=== PATIENT | female | born 1985 | race African-American/Black ===

== ENCOUNTER 2018-12-01 16:12 | Emergency (ER) | payer OTHER ==
[~2018-12-01] VITALS: Ht 165.1 cm; Wt 68.0 kg
--- NOTE | 2018-12-01 16:12 | NUR ---
brought in by [facility] with complaints patient was trying to cut her wrist today . patient came with lapd escort in restraints. on arrival patient is combative at times but confused. patient is homeless unable to get information
--- NOTE | 2018-12-01 16:30 | NUR ---
nursing postal supervisor notified for a sitter to be at bedside
[2018-12-01 16:43] VITALS: BP 122/80
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
--- NOTE | 2018-12-01 16:45 | NUR ---
sitter at bedside (nazario hernandez)
--- NOTE | 2018-12-01 16:48 | NUR ---
ED Nurse Note: BELONGINGS PLACED ON PSYCH LOCKER #1.
--- NOTE | 2018-12-01 16:59 | NUR ---
ED Nurse Note: COLLECTED BLOOD/URINE THEN SENT.
--- NOTE | 2018-12-01 17:06 | NUR ---
ED Nurse Note: TYRA SITTER AT THE BED SIDE.
[2018-12-01 17:11] LABS: APPEARANCE,URINE SLIGHTLY CLOUDY; BILIRUBIN, URINE 1+ (NEGATIVE); EOSINOPHILS % (AUTO) 0.8 % (0.0-3.0); GLUCOSE, URINE (UA) NEGATIVE (NEGATIVE); HEMATOCRIT 40.3 % (37.0-47.0); KETONES,URINE 2+ (NEGATIVE); LEUKOCYTE ESTERASE ,URINE 1+ (NEGATIVE); LYMPHOCYTES % (AUTO) 25.8 % (20.0-45.0); MEAN CORPUSCULAR VOLUME 82 FL (80-99); NEUTROPHILS % (AUTO) 66.4 % (45.0-75.0); NITRITE,URINE NEGATIVE (NEGATIVE); PH,URINE 6 (4.5-8.0); PLATELET COUNT 209 K/UL (150-450); PROTEIN,URINE 2+ (NEGATIVE); RED BLOOD COUNT 4.93 M/UL (4.20-5.40); RED CELL DISTRIBUTION WIDTH 12.9 % (11.6-14.8); UROBILINOGEN,URINE 8 MG/DL (0.0-1.0); WHITE BLOOD COUNT 7.2 K/UL (4.8-10.8)
[2018-12-01 17:13] LABS: COLOR,URINE YELLOW
[2018-12-01 17:35] LABS: ALANINE AMINOTRANSFERASE 27 U/L (12-78); ALBUMIN 4.1 G/DL (3.4-5.0); ALBUMIN/GLOBULIN RATIO 1.1 (1.0-2.7); ALKALINE PHOSPHATASE 62 U/L (46-116); ANION GAP 12 mmol/L (5-15); ASPARTATE AMINO TRANSFERASE 56 U/L (15-37); BILIRUBIN,TOTAL 0.5 MG/DL (0.2-1.0); BLOOD UREA NITROGEN 13 mg/dL (7-18); CALCIUM 9.6 MG/DL (8.5-10.1); CARBON DIOXIDE 22 MMOL/L (21-32); CHLORIDE 104 MMOL/L (98-107); CREATININE 1.3 MG/DL (0.55-1.30); SODIUM 138 MMOL/L (136-145)
[2018-12-01 17:36] LABS: POTASSIUM 2.6 MMOL/L (3.5-5.1)
[2018-12-01] MEDS ORDERED: Haloperidol 5mg/ml Inj IM ONE (17:45)
--- NOTE | 2018-12-01 18:10 | NUR ---
Note mike in EDM - 12/01/18 at 1823 by HOLLIS ED Nurse Note: POTASSIUM 20 MEQ PULLED OUT FROM PYXIS AND ALREADY UNWRAPPED BY ELLA. PT REFUSED TO TAKE ORAL POTASSIUM. POTASIUM DRIP STARTED. ELLA BRIONES WITNESS.
--- NOTE | 2018-12-01 18:10 | NUR ---
ED Nurse Note: POTASSIUM 40 MEQ PULLED OUT FROM PYXIS AND ALREADY UNWRAPPED BY RN. PT REFUSED TO TAKE ORAL POTASSIUM. POTASIUM DRIP STARTED. RN ANSELMO WITNESS.
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
--- NOTE | 2018-12-01 18:40 | NUR ---
ED Nurse Note: POTASSIUM DRIP STOPPED/DISCONTINUED D/T BURNING PAIN ON IV SITE. SPIKED POTASSIUM BAG WASTED ON MEDICATION ROOM. DR NOLAN NOTIFIED AND WAITING FOR NEW ORDERS.
--- NOTE | 2018-12-01 19:10 | NUR ---
ED Nurse Note: Patient awake, sitter at bedside.
--- NOTE | 2018-12-01 19:19 | NUR ---
HAND-OFF: Report given to TIO JARAMILLO.
[2018-12-01 19:43] VITALS: BP 124/87
--- NOTE | 2018-12-01 19:44 | NUR ---
ED Nurse Note: Patient currently sleeping, vital signs stable and documented. Sitter at bedside.
--- NOTE | 2018-12-01 20:44 | NUR ---
ED Nurse Note: Patient is sleeping, vital signs stable.
--- NOTE | 2018-12-01 21:21 | NUR ---
ED Nurse Note: Patient currently resting with sitter at bediside. Second K-rider hung, rate slow patient is sensitive to rapid infusion.
[2018-12-01 22:37] VITALS: BP 128/86
--- NOTE | 2018-12-01 22:38 | NUR ---
ED Nurse Note: Patient resting comfortably, no s/s of acute distress, vital signs updated.
--- NOTE | 2018-12-01 23:38 | NUR ---
ED Nurse Note: Patient is sleeping, is arousable by pain. vital signs stable.
[2018-12-02] VITALS (8 sets, daily range): BP systolic 110–137; BP diastolic 68–93
--- NOTE | 2018-12-02 00:58 | NUR ---
ED Nurse Note: Patient is sleeping, sitter at bedside. vital signs stable.
--- NOTE | 2018-12-02 02:00 | NUR ---
ED Nurse Note: Patient is awake unable to give her name, unresponsive to questions.
--- NOTE | 2018-12-02 03:00 | NUR ---
ED Nurse Note: Patient still sleeping, sitter at bedside.
--- NOTE | 2018-12-02 04:01 | NUR ---
ED Nurse Note: Patient is sleeping, vital signs stable.
--- NOTE | 2018-12-02 07:04 | NUR ---
HAND-OFF: Report given to Sandrita JARAMILLO.
--- NOTE | 2018-12-02 07:48 | NUR ---
ED Nurse Note: BREAKFAST PROVIDED TO PT. NO DISTRESS AT THIS TIME. STILL WAITING FOR PLACEMENT. PRIMARY RN VINICIUS DOWNS.
--- NOTE | 2018-12-02 09:36 | NUR ---
ED Nurse Note: PT FINISHED 1/3 OF HER BREAKFAST THEN WENT BACK TO SLEEP.
--- NOTE | 2018-12-02 11:00 | NUR ---
ED Nurse Note: PRIMARY RN THE SITTER.
--- NOTE | 2018-12-02 11:25 | NUR ---
ED Nurse Note: Pt keeps wandering in the corridor and refsuing to follow commands. Pt is uncooperative and agitated. Dr Leblanc notified.
[2018-12-02] MEDS ORDERED: LORazepam Inj 2mg/ml 1ml ONE (11:26)
[2018-12-02] MEDS ORDERED: DiphenhydrAMINE 50mg/ml Inj ONE (11:27)
[2018-12-02] MEDS ORDERED: DiphenhydrAMINE 50mg/ml Inj IV ONE (11:30)
[2018-12-02] MEDS ORDERED: LORazepam Inj 2mg/ml 1ml IV ONE (11:30)
--- NOTE | 2018-12-02 13:00 | NUR ---
ED Nurse Note: LALA SITTER AT THE BED SIDE. PT RESTING WITH NO DISTRESS.
--- NOTE | 2018-12-02 14:54 | NUR ---
spoke to lluvia officer crow who states once the patient comes to er that is the responsibility of the hospital to find the name of the patient and it will be hippa violation to come back and do anything by lluvia. i told the officer that they need to help me to find her name but he said it is not his responsbility the hospital is responsible for this and social media content specialist should be the one to take care of the issue ( per their smart team)
--- NOTE | 2018-12-02 15:55 | Cardiology Report ---
APPROVED REPORT EKG Measurement Heart [id number] Normal sinus rhythm Biatrial enlargement Nonspecific T wave abnormality Prolonged QT Abnormal ECG
--- NOTE | 2018-12-02 16:00 | NUR ---
ED Nurse Note: LAAL SITTER AT THE BED SIDE. PT STILL NOT STATING HER NAME.
--- NOTE | 2018-12-02 17:43 | NUR ---
ED Nurse Note: DINNER AND DRINKS PROVIDED TO PT. VINICIUS MONTIEL RN THE SITTER AT THIS TIME.
--- NOTE | 2018-12-02 17:53 | NUR ---
Social Service Note TREE unable to identify a patient without any information to complete a detailed search. [employer] will not assist in identifying patient. [facility] spoke with [facility] at [facility] [phone]. [facility] call at [phone] for available beds and then every 8 hours. [facility] a [facility]. Recommend psych consult to determine if patient continues to require inpatient psych treatment. Discussed with charge nurse.
--- NOTE | 2018-12-02 19:05 | NUR ---
ED Nurse Note: received report from RN Dacia and assumed care, pt vss, resp even and unlabored on RA, safet precautions in place, pt sleeping at this time, no sx distress, will cont montior.
--- NOTE | 2018-12-02 19:09 | NUR ---
HAND-OFF: Report given to GHAZAL JARAMILLO.
--- NOTE | 2018-12-02 20:00 | NUR ---
ED Nurse Note: pt AA&ox2, gcs=15, pt states her name is "Kay Lira" and refuses to answer questions. pt states she hears voices to harm herself but states she doesn't have plan, denies HI. pt vss, resp even and unlabored on RA, no sx distress, will cont monitor. safety precautions in place.
[2018-12-03] VITALS: BP 115/75
--- NOTE | 2018-12-03 02:00 | NUR ---
ED Nurse Note: pt sleeping at this time, no sx distress, safety precautions in place, will cont monitor.
[2018-12-03 02:05] VITALS: BP 108/60
--- NOTE | 2018-12-03 04:00 | NUR ---
ED Nurse Note: ERMD AT THE BEDSIDE, pt provided name and the birthday, chargenurse notified, will cont monitor.
--- NOTE | 2018-12-03 05:42 | NUR ---
ED Nurse Note: pt awake and ambulated to restroom, steady gait noted w/o assistance, no sx distres, safety precautions in place, will cont monitor.
--- NOTE | 2018-12-03 07:10 | NUR ---
ED Nurse Note:pt. is sleeping in room ,sitter is at bedside
[2018-12-03 08:00] VITALS: BP 105/61
--- NOTE | 2018-12-03 08:00 | NUR ---
ED Nurse Note:pt. is awake in her room ate breakfast, VSS, no agitation ,sitter is at bed side
--- NOTE | 2018-12-03 08:40 | NUR ---
ED Nurse Note:dr. Ovalles avaluated pt. and cleared her for discharge from ER, pt. is fully alert and oriented no SI or HI present, sitter was canelled per MD order
--- NOTE | 2018-12-03 10:59 | NUR ---
ED Nurse Note:pt. stated that she [facility] to go to [facility]
[2018-12-03] MEDS ORDERED: Depakote 500mg tab ORAL ONE (12:45)
--- NOTE | 2018-12-03 12:55 | NUR ---
ED Nurse Note:given psych meds per MD order
[2018-12-03] MEDS ORDERED: LORazepam Inj 2mg/ml 1ml IM ONE (13:15)
[2018-12-03] MEDS ORDERED: DEPAKOTE500 MG PO (13:37)
[2018-12-03] MEDS ORDERED: ZYPREXA5 MG ORAL (13:37)
[2018-12-03 14:00] VITALS: BP 105/61
--- NOTE | 2018-12-03 14:10 | NUR ---
ER DISCHARGE NOTE: Patient is cleared to be discharged per ERMD, pt is aox4, on room air, with stable vital signs. pt was given dc and prescription instructions with radha merrill pt was able to verbalize understanding pt is able to ambulate with steady gait. pt took all belongings.
--- NOTE | 2018-12-04 03:44 | Consultation ---
DATE OF CONSULTATION: NOTE: "POOR AUDIO QUALITY" HISTORY OF PRESENT ILLNESS: The patient is a 33-year-old black female with a history of substance use disorder, who has been admitted to the hospital on a 5150 for danger to self. Upon evaluation, the patient denied using drugs initially. Stated she only uses alcohol. Then when we informed her that there was a urine-tox and her urine is positive for drugs, she admitted that she has been using only meth and cocaine. Her urine-tox was positive for benzodiazepine, cocaine, methamphetamine, and cannabis. Her labs were consistent with using chronic alcohol. Initially, she stated that she has been off of her Depakote, Abilify, and other medications for the past few days. Then she stated that she has not been taking her medication for a while. She was unable to recall the name of her psychiatrist or a clinic that she attends for her psychiatric care. The patient stated she was diagnosed with bipolar disorder. The patient almost answers everything which all the psychiatric, however, did not appear to be anxious nor psychotic. The patient stated she has been 1000 times. The patient is admitted to go to the psychiatric unit. She is here currently, however, she was not anxious and was asleep. She was somewhat uncooperative with the examination. Stated that she would rather sleep. PAST PSYCHIATRIC HISTORY: She stated that she had been hospitalized several times, however, she was unable to give me the details of the psychiatric hospitalization. PAST MEDICAL HISTORY: Nonsignificant. ALLERGIES: No known drug allergies. SUBSTANCE ABUSE HISTORY: Significant for benzodiazepines, methamphetamine, cocaine, alcohol, and cannabis. The patient was not motivated to participate in treatment for substance use disorder. She is admitted to go to the psychiatric unit. MENTAL STATUS EXAMINATION: The patient is alert and oriented times self, place, situation, and date. Her mood was neutral. Affect was constricted and congruent with mood and appropriate. Thought process was linear and goal-oriented. Thought content, there were no suicidal or homicidal ideations. No auditory or visual hallucinations. No delusions. Insight and judgment was fair. ASSESSMENT: [place] I Polysubstance dependence. [place] II Deferred. [place] III As above. [place] IV Low to moderate. [place] V 60 PLAN: 1. I will discontinue the 5150. 2. The patient does not benefit from psychiatric hospitalization as she is not an imminent danger to self or others. 3. The patient will benefit from outpatient versus inpatient for substance use disorder. 4. I do recommend 1000 mg of Depakote and 10 mg of Abilify in the morning. 5. Discussed the case with the nurse and Dr. Elena. Clayton Ovalles M.D. DR: BUSTER JOB#: [id number] CC: KLAUS
== END 2018-12-03 14:10 | disposition home or self-care (01) ==
LOC: EDBD 16:12 → EMR 19:42 → EDBD 19:42 → EMR 12-03 14:10
DX: F32.9 Major depressive disorder, single episode, unspecified (principal); T14.91XA Suicide attempt, initial encounter; E87.6 Hypokalemia; R45.1 Restlessness and agitation; Z78.1 Physical restraint status; X78.9XXA Intentional self-harm by unspecified sharp object, initial encounter; Y92.810 Car as the place of occurrence of the external cause; F19.10 Other psychoactive substance abuse, uncomplicated
CPT/HCPCS: 36415; 80053; 80307; 80329; 81003; 84132; 84439; 84443; 84481; 84703; 85025; 93005; 96365; 96372; 96375; 99284; J1200; J1630; J3480; J8499